=== PATIENT | female | born 1995 | race Caucasian/White ===

== ENCOUNTER 2020-04-02 14:31 | Outpatient (CLI) | payer OTHER ==
[2020-04-02 16:11] LABS: APPEARANCE,URINE CLOUDY; BILIRUBIN,URINE NEGATIVE (NEGATIVE); COLOR,URINE YELLOW; GLUCOSE, URINE >=500 mg/dL (NEGATIVE); KETONES,URINE TRACE mg/dL (NEGATIVE); LEUKOCYTE ESTERASE,URINE SMALL (NEGATIVE); NITRITE,URINE NEGATIVE (NEGATIVE); PROTEIN,URINE 30 mg/dL (NEGATIVE); URINE SPECIFIC GRAVITY 1.028; UROBILINOGEN,URINE NEGATIVE mg/dL (<2.0)
[2020-04-02 16:24] LABS: HEMATOCRIT 33.6 % (36.0-47.0); HEMOGLOBIN 11.1 g/dL (12.0-15.5); MEAN CORPUSCULAR HEMOGLOBIN 25.9 pg (27.0-33.4); MEAN CORPUSCULAR HGB CONC 33.2 g/dL (32.0-36.0); MEAN CORPUSCULAR VOLUME 78 fl (80-97); PLATELET COUNT 191 10^3/uL (150-450); RED BLOOD COUNT 4.29 10^6/uL (3.72-5.28); RED CELL DISTRIBUTION WIDTH 14.3 % (11.5-14.0); WHITE BLOOD COUNT 10.4 10^3/uL (4.0-10.5)
[2020-04-02 16:31] LABS: URINE AMPHETAMINES SCREEN NEGATIVE; URINE BARBITURATES SCREEN NEGATIVE; URINE BENZODIAZEPINES SCREEN NEGATIVE; URINE COCAINE SCREEN NEGATIVE; URINE MARIJUANA (THC) SCREEN NEGATIVE; URINE METHADONE SCREEN NEGATIVE; URINE PHENCYCLIDINE SCREEN NEGATIVE
--- NOTE | 2020-04-02 16:51 | Non Stress Test Report ---
Non Stress Test Datetime Report Generated by CPN: 04/02/2020 16:51 DEMOGRAPHIC Test Number: 1 EGA NST: 38.0 INDICATION Indication for Study (NST) Other: IUP @ 38wks URINE RESULTS Urine Protein, NST: Negative Urine Ketones - NST: Positive Urine Glucose - NST: Positive Urine Blood - NST: Negative MONITORING Monitor Explained: Monitor Explained; Test Explained; Patient Verbalized Understanding Time on Monitor: 04/02/2020 15:30 Time off Monitor: 04/02/2020 15:55 NST Duration: 25 NST INTERVENTIONS NST Interventions: PO Hydration; Reposition Patient Physician Notified NST: Dr. Bartlett BABY A: [id number] BABY A Movement : Present Contraction Frequency : x1 FHR Baseline : 100 Accelerations : 15X15 Decelerations : None Variability : Moderate 6-25bpm NST Review: Meets Criteria for Reactive NST NST Review and Verified By : SAutry NST Results: Reactive NST REPORT Report Trigger: Send Report
== END 2020-04-02 16:41 | disposition home or self-care (01) ==
LOC: LC 14:31
PROVIDERS: ATTEND Obstetrics & Gynecology Gynecology
DX: O26.893 Other specified pregnancy related conditions, third trimester (principal); R06.02 Shortness of breath; Z3A.38 38 weeks gestation of pregnancy
CPT/HCPCS: 36415; 59025; 80307; 81005; 82962; 85027; 94760

== ENCOUNTER 2020-04-09 06:25 | Inpatient (IN) | payer OTHER ==
[2020-04-09] MEDS ORDERED: PENICILLIN G-K 5 MILLION UNIT VIAL ONE ×2 (07:10→22:00)
[2020-04-09] MEDS ORDERED: OXYTOCIN 10 UNIT/ML VIAL ONE (07:23)
[2020-04-09] MEDS ORDERED: MISOPROSTOL 0.2 MG TABLET ONE (07:23)
[2020-04-09] MEDS ORDERED: OXYTOCIN/0.9 % SODIUM CHLORIDE 30 UNIT/500 ML RTUINJ ONE (07:24)
[2020-04-09] MEDS ORDERED: LIDOCAINE 1% INJ-PF (10 MG/ML) 30 ML SDV ONE (07:24)
[2020-04-09] MEDS ORDERED: RINGERS SOLUTION,LACTATED 1,000 ML IV ONE (07:27)
[2020-04-09] MEDS ORDERED: RINGERS SOLUTION,LACTATED 1,000 ML IV PRN (07:27)
[2020-04-09] MEDS ORDERED: PENICILLIN G POTASSIUM 5,000,000 UNIT in DEXTROSE 5%-WATER 100 ML IV ONE (07:27)
[2020-04-09] MEDS ORDERED: MISOPROSTOL 0.2 MG TABLET PO ONE (07:57)
[2020-04-09 08:12] LABS: ABSOLUTE BASOPHILS # (AUTO) 0.1 10^3/uL (0.0-0.2); ABSOLUTE EOSINOPHILS # (AUTO) 0.1 10^3/uL (0.0-0.6); ABSOLUTE LYMPHOCYTES (AUTO) 1.7 10^3/uL (0.5-4.7); ABSOLUTE MONOCYTES (AUTO) 0.8 10^3/uL (0.1-1.4); ABSOLUTE NEUT (AUTO) 5.8 10^3/uL (1.7-8.2); BASOPHILS % (AUTO) 0.8 % (0-2); EOSINOPHILS % (AUTO) 0.7 % (0-6); HEMATOCRIT 32.1 % (36.0-47.0); HEMOGLOBIN 10.6 g/dL (12.0-15.5); LYMPHOCYTES % (AUTO) 20.3 % (13-45); MEAN CORPUSCULAR HEMOGLOBIN 25.4 pg (27.0-33.4); MEAN CORPUSCULAR HGB CONC 32.9 g/dL (32.0-36.0); MEAN CORPUSCULAR VOLUME 77 fl (80-97); MONOCYTES % (AUTO) 9.4 % (3-13); PLATELET COUNT 160 10^3/uL (150-450); RED BLOOD COUNT 4.17 10^6/uL (3.72-5.28); RED CELL DISTRIBUTION WIDTH 14.2 % (11.5-14.0); SEGMENTED NEUTROPHILS % (AUTO) 68.8 % (42-78); TOTAL CELLS COUNTED % (AUTO) 100 %; WHITE BLOOD COUNT 8.5 10^3/uL (4.0-10.5)
--- NOTE | 2020-04-09 08:29 | Admission Physical ---
Datetime Report Generated by CPN: 04/09/2020 08:28 CURRENT ADMISSION Chief Complaint: Scheduled Induction of Labor Indication for Induction: Polyhydramnios Admit Impression : Term, Intrauterine ; No Active Labor; Intact Membranes; Induction of Labor Admit Plan: Admit to Unit; Initiate Labor Induction Protocol ALLERGIES Medication Allergies: No Medication Allergies: No Known Allergies (04/02/2020) Latex: No Latex Allergies OBSTETRICAL HISTORY EDC: 04/16/2020 00:00 : 4 Para: 3 PHYSICAL EXAM General: Normal HEENT: Normal Neurologic: Normal Thyroid: Deferred Heart: Normal Lungs: Normal Breast: Deferred Back: Normal Abdomen: Normal Genitourinary Exam: Normal Extremities: Normal DTRs: Normal Pelvic Type: Adequate Vital Signs: Reviewed VAGINAL EXAM Dilatation: 1 Effacement: 25 Station: -3 Contraction Comments: none MEMBRANES Membranes: Intact FETUS A EGA: 39.0 Monitoring: External US FHR- Baseline: 145 Variability: Moderate 6-25bpm Accelerations: 15X15 Decelerations: None FHR Category: Category I Presentation: Vertex Admit Comment: 24yo at 39+0ega presents for IOL due to polyhydramnios. Pelvis proven to 8#12oz. H/o FTSVD x 3. RH negative. H/o Anxiety and depression. GBS pos - PCN for GBS prophy. H/o polyhydramnios in 2 other . I spoke with Dr. Wayne regarding method of induction and plan for Cytotec 50mcg po and will re-evaluate in 4 hours. Admit and anticipate INFORMED CONSENT Informed Consent Obtained: Vaginal Delivery; Induction of Labor; Risks, Benefits and Alternatives Discussed Signature: with User ID: [email or web address]
[2020-04-09] MEDS ORDERED: OXYTOCIN/0.9 % SODIUM CHLORIDE 30 UNIT/500 ML RTUINJ IV PRN (08:38)
[2020-04-09 08:56] LABS: APPEARANCE,URINE CLOUDY; BILIRUBIN,URINE NEGATIVE (NEGATIVE); GLUCOSE, URINE NEGATIVE (NEGATIVE); KETONES,URINE TRACE mg/dL (NEGATIVE); LEUKOCYTE ESTERASE,URINE TRACE (NEGATIVE); NITRITE,URINE NEGATIVE (NEGATIVE); PROTEIN,URINE 100 mg/dL (NEGATIVE); URINE SPECIFIC GRAVITY 1.028
[2020-04-09 08:59] LABS: COLOR,URINE DARK YELLOW
[2020-04-09 09:08] LABS: URINE AMPHETAMINES SCREEN NEGATIVE; URINE BARBITURATES SCREEN NEGATIVE; URINE BENZODIAZEPINES SCREEN NEGATIVE; URINE COCAINE SCREEN NEGATIVE; URINE MARIJUANA (THC) SCREEN NEGATIVE; URINE METHADONE SCREEN NEGATIVE; URINE PHENCYCLIDINE SCREEN NEGATIVE
[2020-04-09] MEDS: PENICILLIN G POTASSIUM 2,500,000 UNIT in DEXTROSE 5%-WATER 50 ML IV SCH ×3 (12:50→22:02)
[2020-04-09] MEDS ORDERED: NALBUPHINE HCL INJ 10 MG/1 ML AMPULE ONE ×2 (18:42→22:10)
[2020-04-09] MEDS ORDERED: NALBUPHINE HCL INJ 10 MG/1 ML AMPULE INJ ONE ×2 (19:45→22:30)
[2020-04-10] MEDS ORDERED: MEASLES,MUMPS&RUBELLA VACC/PF 0.5 ML VIAL SUBCUT PRN (00:20)
[2020-04-10] MEDS ORDERED: ZOLPIDEM TARTRATE 5 MG TABLET PO PRN (00:20)
[2020-04-10] MEDS ORDERED: PROMETHAZINE HCL INJ 25 MG/1 ML VIAL IV PRN (00:20)
[2020-04-10] MEDS ORDERED: BENZOCAINE/MENTHOL AEROSOL SPRAY 56 ML TOP PRN (00:20)
[2020-04-10] MEDS ORDERED: PROMETHAZINE HCL 25 MG TABLET PO PRN (00:20)
[2020-04-10] MEDS ORDERED: GLYCERIN/WITCH HAZEL LEAF 1 EACH MED..WIPE TP PRN (00:20)
[2020-04-10] MEDS ORDERED: PROMETHAZINE HCL 25 MG SUPP.RECT PR PRN (00:20)
[2020-04-10] MEDS ORDERED: PSEUDOEPHEDRINE HCL 30 MG TABLET PO PRN (00:20)
[2020-04-10] MEDS ORDERED: ACETAMINOPHEN 650 MG SUPP.RECT PR PRN (00:20)
[2020-04-10] MEDS ORDERED: DIBUCAINE 1% OINTMENT 28 GM TP PRN (00:20)
[2020-04-10] MEDS ORDERED: DIPH/PERTUSS(ACELL)/TETANUS VAC/PF 0.5 ML SYR (>=10YO) IM PRN (00:20)
[2020-04-10] MEDS ORDERED: NA PHOS,M-B/NA PHOS,DI-BA (ADULT) 133 ML ENEMA PR PRN (00:20)
[2020-04-10] MEDS ORDERED: OXYTOCIN/0.9 % SODIUM CHLORIDE 30 UNIT/500 ML RTUINJ IV PRN (00:20)
[2020-04-10] MEDS ORDERED: ACETAMINOPHEN 325 MG TABLET PO PRN (00:20)
[2020-04-10] MEDS ORDERED: DIPHENHYDRAMINE HCL 25 MG CAPSULE PO PRN (00:20)
[2020-04-10] MEDS ORDERED: MAGNESIUM HYDROXIDE SUSP 30 ML UDCUP PO PRN (00:20)
[2020-04-10] MEDS ORDERED: ACETAMINOPHEN WITH CODEINE #3 TABLET PO PRN ×2 (00:20)
[2020-04-10] MEDS ORDERED: IBUPROFEN 800 MG TABLET ONE ×2 (00:24→07:28)
--- NOTE | 2020-04-10 06:28 | Delivery Summary ---
Del Sum A-C Datetime Report Generated by CPN: 04/10/2020 06:28 DELIVERY PERSONNEL DELIVERY PERSONNEL: [id number] Delivery Doctor:: Nicole Wayne MD Labor and Delivery Nurse:: Alicja Lopez RNcase manager Nurse:: Toshia Pelayo RN Nursery Nurse:: Grazyna Porter RN Regional Sales Leader/AUTOMATIC VULCANIZING LEAD OPERATOR: Rosemary Velez, SENIOR HARDWARE DESIGN ENGINEER MATERNAL INFORMATION Delivery Anesthesia: None Medications After Delivery: Pitocin 30 Units in 500ml NS/D5W Maternal Complications: None Provider Comments: Called to patients room as she was completely dilated and urge to push. Delivered after short interval pushing over intact perineum. Viable male in vertex presentation. Cord clamping delayed for 30 seconds as was vigorous. Both Mother and infant stable. LABOR SUMMARY EDC: 04/16/2020 00:00 No. Babies in Womb: 1 Attempted: No Labor Anesthesia: None LABOR INFORMATION Reason for Induction: Polyhydramnios Onset of Labor: 04/09/2020 12:24 Complete Dilatation: 04/10/2020 00:06 Group B Beta Strep: Positive Antibiotics # of Doses: 4 Antibiotics Time of Last Dose: 2201 Name of Antibiotic Given: PCN Steroids Given: None Reason Steroids Not Administered: Not Applicable MEMBRANES Membranes Rupture Method: Artificial Rupture of Membranes: 04/09/2020 12:24 Length of Rupture (hr): 11.78 Amniotic Fluid Color: Clear Amniotic Fluid Amount: Large Amniotic Fluid Odor: Normal STAGES OF LABOR Stage 1 hr: 11 Stage 1 min: 42 Stage 2 hr: 0 Stage 2 min: 5 Stage 3 hr: 0 Stage 3 min: 4 Total Time in Labor hr: 11 Total Time in Labor min: 51 VAGINAL DELIVERY Episiotomy: None Laceration #1: None Laceration Extension #1: N/A Sponge Count Correct: N/A CSECTION DELIVERY Primary Indication: N/A Secondary Indication: N/A CSection Incidence: N/A Labor: N/A Elective: N/A CSection Incision: N/A BABY A INFORMATION Infant Delivery Date/Time: 04/10/2020 00:11 Method of Delivery: Vaginal Nurse Controlled Delivery: No Born in Route : No : N/A Forceps: N/A Vacuum Extraction: N/A Shoulder Dystocia : No PRESENTATION/POSITION BABY A Presentation: Cephalic Cephalic Presentation: Vertex Vertex Position: Right Occipital Anterior Breech Presentation: N/A PLACENTA INFORMATION BABY A Placenta Delivery Time : 04/10/2020 00:15 Placenta Method of Delivery: Spontaneous Placenta Status: Delivered SCORES BABY A Heart Rate 1 min: >100 bpm Resp Effort 1 min: Good Cry Reflex Irritability 1 min: Cough or Sneeze or Pulls Away Muscle Tone 1 min: Active Motion Color 1 min: Blue/Pale SCORE 1 MIN: 8 Heart Rate 5 min: >100 bpm Resp Effort 5 min: Good Cry Reflex Irritability 5 min: Cough or Sneeze or Pulls Away Muscle Tone 5 min: Active Motion Color 5 min: Body Chapman, Extremities Blue SCORE 5 MIN: 9 INFORMATION BABY A Gestational Age at Delivery: 39.0 Gestational Status: Full Term- 39- 40.6 Weeks Outcome : Liveborn Infant Condition : Stable Infant Sex: Male IDENTIFICATION BABY A Verification Date/Time: 04/10/2020 00:17 ID Band Number: [id number] Mother's Name Verified: Yes Infant RN Verifying : , RN/Yousif, RN WEIGHT/LENGTH BABY A Birthweight (gm): 3730 Weight (lb): 8 Weight (oz): 4 Length (in): 21.75 Infant Length (cm): 55.25 CORD INFORMATION BABY A No. Cord Vessels: 3 Nuchal Cord : N/A Cord Blood Taken: Yes-For Eval (Mom's Blood Type - or O+) ASSESSMENT BABY A Skin to Skin: Yes SIGNATURES Signature: with User ID: Dieter : with User ID: Dieter
[2020-04-10] MEDS: IBUPROFEN 800 MG TABLET PO SCH ×4 (07:31→21:54)
--- NOTE | 2020-04-10 08:12 | Warning Signs in Babies ---
VOD Warning Signs Datetime Report Generated by [facility]: 04/10/2020 08:12 VOD#608 -Warning Signs in Babies: Needs to be viewed. (04/10/2020 07:33:Anibal Rosenthal RN)
[2020-04-10] MEDS: SENNOSIDES/DOCUSATE 8.6-50 MG 1 EACH TABLET PO SCH (10:56)
[2020-04-10] MEDS: PRENATAL VITAMIN W DHA CAPSULE PO SCH (10:56)
[2020-04-10] MEDS: DOCUSATE SODIUM 100 MG CAPSULE PO SCH ×2 (10:56→17:23)
[2020-04-10] MEDS: FAMOTIDINE 20 MG TABLET PO SCH ×2 (10:56→21:54)
[2020-04-10] MEDS: FERROUS SULFATE 325 MG TABLET PO SCH ×2 (10:56→17:23)
[2020-04-10] MEDS: PENICILLIN G POTASSIUM 2,500,000 UNIT in DEXTROSE 5%-WATER 50 ML IV SCH ×2 (13:30→13:31)
[2020-04-11 06:23] LABS: HEMATOCRIT 32.1 % (36.0-47.0); HEMOGLOBIN 10.7 g/dL (12.0-15.5); MEAN CORPUSCULAR HGB CONC 33.5 g/dL (32.0-36.0); MEAN CORPUSCULAR VOLUME 78 fl (80-97); PLATELET COUNT 161 10^3/uL (150-450); RED BLOOD COUNT 4.13 10^6/uL (3.72-5.28); RED CELL DISTRIBUTION WIDTH 14.2 % (11.5-14.0); WHITE BLOOD COUNT 11.9 10^3/uL (4.0-10.5)
[2020-04-11] MEDS: IBUPROFEN 800 MG TABLET PO SCH ×2 (06:23→14:21)
--- NOTE | 2020-04-11 10:29 | PDOC DISCHARGE SUMMARY ---
Impression - Admit/DC Date/PCP Admission Date/Primary Care Provider: 04/09/20 06:25 DENIS LOPEZ MD Discharge Date: 04/11/20 - PP Day #1, pt is requesting to go home today. A negative, Rubella Immune, , UOB, voiding - Discharge Diagnosis (1) (normal spontaneous vaginal delivery) Is this a current diagnosis for this admission?: Yes (2) Rh negative status during Is this a current diagnosis for this admission?: Yes (3) Carrier or suspected carrier of group B Streptococcus Is this a current diagnosis for this admission?: Yes (4) Polyhydramnios Is this a current diagnosis for this admission?: Yes - Additional Information Resuscitation Status: Full Code Discharge Diet: As Tolerated, Regular Discharge Activity: Activity As Tolerated, No Lifting Over 10 Pounds, Pelvic Rest Referrals: DENIS LOPEZ MD [Primary Care Provider] - Home Medications: Omeprazole Magnesium [Prilosec Otc] 1 tab PO DAILY 04/02/20 HPI Reason(s) for Admission: Onset of Labor Procedures: Ultrasound, Management of Obstetric Complications, Other - Hx of polyhydramnios Intrapartum Procedure(s): Spontaneous Vaginal Delivery Results Laboratory Results: WBC 11.9 10^3/uL (4.0-10.5) H 04/11/20 06:08 RBC 4.13 10^6/uL (3.72-5.28) 04/11/20 06:08 Hgb 10.7 g/dL (12.0-15.5) L 04/11/20 06:08 Hct 32.1 % (36.0-47.0) L 04/11/20 06:08 MCV 78 fl (80-97) L 04/11/20 06:08 MCH 26.0 pg (27.0-33.4) L 04/11/20 06:08 MCHC 33.5 g/dL (32.0-36.0) 04/11/20 06:08 RDW 14.2 % (11.5-14.0) H 04/11/20 06:08 Plt Count 161 10^3/uL (150-450) 04/11/20 06:08 Lymph % (Auto) 20.3 % (13-45) 04/09/20 07:45 [place] % (Auto) 9.4 % (3-13) 04/09/20 07:45 Eos % (Auto) 0.7 % (0-6) 04/09/20 07:45 Baso % (Auto) 0.8 % (0-2) 04/09/20 07:45 Absolute Neuts (auto) 5.8 10^3/uL (1.7-8.2) 04/09/20 07:45 Absolute Lymphs (auto) 1.7 10^3/uL (0.5-4.7) 04/09/20 07:45 Absolute Monos (auto) 0.8 10^3/uL (0.1-1.4) 04/09/20 07:45 Absolute Eos (auto) 0.1 10^3/uL (0.0-0.6) 04/09/20 07:45 Absolute Basos (auto) 0.1 10^3/uL (0.0-0.2) 04/09/20 07:45 Seg Neutrophils % 68.8 % (42-78) 04/09/20 07:45 Urine Color DARK YELLOW 04/09/20 06:50 Urine Appearance CLOUDY 04/09/20 06:50 Urine pH 6.0 (5.0-9.0) 04/09/20 06:50 Ur Specific [place] 1.028 04/09/20 06:50 Urine Protein 100 mg/dL (NEGATIVE) H 04/09/20 06:50 Urine Glucose (UA) NEGATIVE mg/dL (NEGATIVE) 04/09/20 06:50 Urine Ketones TRACE mg/dL (NEGATIVE) H 04/09/20 06:50 Urine Blood NEGATIVE (NEGATIVE) 04/09/20 06:50 Urine Nitrite NEGATIVE (NEGATIVE) 04/09/20 06:50 Urine Bilirubin NEGATIVE (NEGATIVE) 04/09/20 06:50 Urine Urobilinogen 2.0 mg/dL (<2.0) H 04/09/20 06:50 Ur Leukocyte Esterase TRACE (NEGATIVE) H 04/09/20 06:50 Urine Ascorbic Acid NEGATIVE (NEGATIVE) 04/09/20 06:50 Urine Opiates Screen NEGATIVE 04/09/20 06:50 Urine Methadone Screen NEGATIVE 04/09/20 06:50 Ur Barbiturates Screen NEGATIVE 04/09/20 06:50 Ur Phencyclidine Scrn NEGATIVE 04/09/20 06:50 Ur Amphetamines Screen NEGATIVE 04/09/20 06:50 U Benzodiazepines Scrn NEGATIVE 04/09/20 06:50 Urine Cocaine Screen NEGATIVE 04/09/20 06:50 U Marijuana (THC) Screen NEGATIVE 04/09/20 06:50 RPR NONREACTIVE (NONREACTIVE) 04/09/20 07:45 Blood Type A NEGATIVE 04/11/20 06:08 Antibody Screen NEGATIVE 04/09/20 07:45 Plan Plan of Treatment: d/c home if baby can be discharged. Pt to f/up with [facility] in 4 wks for PP check Time Spent: Less than 30 Minutes
[2020-04-11] MEDS: PRENATAL VITAMIN W DHA CAPSULE PO SCH (10:39)
[2020-04-11] MEDS: DOCUSATE SODIUM 100 MG CAPSULE PO SCH (10:39)
[2020-04-11] MEDS: SENNOSIDES/DOCUSATE 8.6-50 MG 1 EACH TABLET PO SCH (10:39)
[2020-04-11] MEDS: FAMOTIDINE 20 MG TABLET PO SCH (10:39)
[2020-04-11] MEDS: FERROUS SULFATE 325 MG TABLET PO SCH (10:40)
[2020-04-11 11:38] VITALS: BP 130/85
== END 2020-04-11 16:33 | disposition home or self-care (01) | DRG 807 ==
LOC: LR 06:25 → 2S 04-10 10:35
PROVIDERS: ADMIT Student in an Organized Health Care Education/Training Program; ATTEND Student in an Organized Health Care Education/Training Program
PROC: 10907ZC Drainage of Amniotic Fluid, Therapeutic from Products of Conception, Via Natural or Artificial Opening (ICD-10-PCS; 2020-04-09)
PROC: 10E0XZZ Delivery of Products of Conception, External Approach (ICD-10-PCS; principal; 2020-04-10)
PROC: 3E0334Z Introduction of Serum, Toxoid and Vaccine into Peripheral Vein, Percutaneous Approach (ICD-10-PCS; 2020-04-11)
DX: O40.3XX0 Polyhydramnios, third trimester, not applicable or unspecified (principal); Z37.0 Single live birth; O99.824 Streptococcus B carrier state complicating childbirth; O26.893 Other specified pregnancy related conditions, third trimester; Z67.11 Type A blood, Rh negative; Z3A.39 39 weeks gestation of pregnancy
CPT/HCPCS: 36415; 80307; 81005; 85025; 85027; 85461; 86592; 86850; 86900; 86901; J2300; J2540; J2590; J2790; J3490; J7060